=== PATIENT | female | born 1950 | race Caucasian/White ===

== ENCOUNTER 2024-01-06 14:06 | Outpatient (AMB) | payer MEDICARE, MEDICAID, SELFPAY ==
--- NOTE | 2024-01-06 14:26 | A.OFFPC_ITS ---
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 Foreign Student Adviser Required: No Is last menstrual period known: No Post menopausal: No Patient : No Allergies morphine Adverse Reaction (Intermediate, Verified 01/06/24 14:31) Rash Penicillins Adverse Reaction (Intermediate, Verified 01/06/24 14:31) Rash Tobacco use date assessed: 01/06/24 Fall risk assessment: No Falls in past year Last assessed Fall Risk: 01/06/24 Dental Screening Dental Screen Date: 01/06/24 Did you have a dental visit in the last 12 months?: No Did you have a dental problem in the last 6 months where you did not have access to dental care?: No Was dental information given to patient?: Patient has dentist HPI HPI Comments History of Present Illness Details This is a 73-year-old female with a past medical history obtained from very limited medical records from [facility] including 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 The patient is alone today. Patient says there is no family/career development associate I can call that would be able to help with today's visit. She is a very poor historian. Patient says she has been living at [facility] since October this year. The contact [phone]. Patient says that she was hospitalized for an unknown duration a year or 2 ago and that she was in rehab in [place] for about a year after that until she relocated to [facility], but I found a summary from rehab in her chart from 2020. Prior to all this she was living in an apartment. She has 2 daughters, but she says they are not involved in her healthcare. Patient says she is not currently receiving PT or OT. She uses a walker. Notes indicate she had a CVA in 2020. Patient says this is correct. Notes also indicate she had an NSTEMI in 2020 and CHF and stress cardiomyopathy with EF 25- 30%. She does not recall being told that she has any heart problems. Patient does not know if she sees specialists or when she was last seen by specialists. She believes she was diagnosed with HIV about a year ago. Her medication list which is handwritten includes Biktarvy. Some of this medication list is not very legible. [facility] contacted for typed list. She brought a list of blood sugars with her which are quite variable. They range from 82-417. Patient says she is on a sliding scale of short-acting insulin and on 44 units of Lantus. She says the nurses at her rest home check her blood sugar and director how many units of short-acting insulin to administer and she administers it. She endorses neuropathy in her feet. ROS: Constitutional: No unexplained weight loss, fever, chills, +chronic fatigue Eyes: No vision changes Respiratory: No shortness of breath, cough or sputum production. Cardiovascular: No chest pain or palpitations. Gastrointestinal: No anorexia, nausea, vomiting or diarrhea. No abdominal pain\ Neurologic: No headache, dizziness, syncope or seizures Endocrine:No polyuria or polydipsia. Physical exam: Constitutional: Alert, in no distress. Ambulates with walker. Head: Normocephalic. Eyes: Pupils are equal, round and reactive to light. Neck: Supple, Full range of motion. No lymphadenopathy. Respiratory: Clear to auscultation. Cardiovascular: S1 S2 regular. No murmurs. Neurologic: No focal neurological deficits. Extremities: Warm and well perfused. No clubbing, cyanosis or edema. Psychiatric: Cooperative [facility] Medical History (Updated 01/07/24 @ 08:34 by PAWAN Worthington) NSTEMI (non-ST elevated myocardial infarction) CVA (cerebral vascular accident) CKD stage 3b, GFR 30-44 ml/min Generalized muscle weakness Cognitive communication deficit Chronic low back pain with sciatica Vascular dementia Hyperlipidemia History of CHF (congestive heart failure) History of bacteremia Morbid obesity due to excess calories History of pyelonephritis Rheumatic fever without heart involvement Parkinson's disease without dyskinesia Metabolic encephalopathy HIV (human immunodeficiency virus infection) Hypertension Type II diabetes with exterminator use of insulin Diabetes Surgical History (Updated 01/07/24 @ 08:32 by PAWAN Worthington) History of partial hysterectomy Social History Housing: Assisted Living Facility Patient Tobacco Use Status: Current everyday Tobacco user Tobacco use type: Cigarette Cigarette Packs Per Day: 0 Cigarettes Per Day: 4 e-Cigarette/Vaping Use: Never Used Second Hand Smoke Exposure: Yes service: No Current occupational status: retired Current occupational exposures/hazards: No Cognitive needs: No Hearing needs: No Vision needs: No Questionnaire PHQ-9 Over the last 2 weeks, how often have you been bothered by any of the following problems? 1. Little interest or pleasure in doing things: not at all 2. Feeling down, depressed, or hopeless: not at all 3. Trouble falling or staying asleep, or sleeping too much: nearly every day 4. Feeling tired or having little energy: nearly every day 5. Poor appetite or overeating: not at all 6. Feeling bad about yourself - or that you are a failure or have let yourself or your family down: not at all 7. Trouble concentrating on things, such as reading the newspaper or watching television: not at all 8. Moving or speaking so slowly that other people could have noticed. Or the opposite - being so fidgety or restless that you have been moving around a lot more than usual: not at all 9. Thoughts that you would be better off or of hurting yourself in some way: not at all Total score: 6 10398 - PHQ-9 Billing: Yes Source: Developed by Drs. Jasper Leiva, Gisell Townsend, Benjamin Villarreal and colleagues, with an educational luz from [employer]. Thrive Questionnaire Date Thrive assessed: 01/06/24 I am a: Patient What is your living situation today?: I have a steady place to live Within the past 12 months, did the food you bought not last and you didn't have the money to get more?: Never true Within the past 12 months, did you worry whether your food would run out before you got money to buy more?: Never true Do you have trouble paying for medicines?: No Do you have trouble getting transportation to medical appointments?: No Do you have trouble paying your heating and electricity bill?: No Do you have trouble taking care of your child, family member or friend?: No Do you have trouble with day-to-day activities such as bathing, preparing meals, shopping, managing finances, etc.?: No Are you currently unemployed and looking for a job?: No Are you interested in more education?: No Please select the resources that you would like help with: None Currently or been in a relationship where the following occur: No concerns reported THRIVE Score: 0 AUDIT C Alcohol Use Questionnaire (AUDIT-C) 1. How often do you have a drink containing alcohol?: Never Total Score: 0 Score Reviewed/Action Taken: Yes LARISA-7 AMB Questionnaire LARISA-7 Date LARISA - 7 assessed: 01/06/24 Feeling nervous, anxious, or on edge: 0 = Not at all Not being able to stop or control worryin = Not at all Worrying too much about different things: 0 = Not at all Trouble relaxin = Not at all Being so restless that it is hard to sit still: 0 = Not at all Becoming easily annoyed or irritable: 0 = Not at all Feeling afraid as if something awful might happen: 0 = Not at all Total LARISA-7 score (0-4 normal; 5-9 mild; 10-14 moderate; 15-21 severe): 0 Source: Developed by Drs. Jasper Leiva, Gisell Townsend, Benjamin Villarreal and colleagues, with an educational luz from [employer]. LARISA-7 Assessment Billing LARISA-7 Assessment Tool: LARISA-7 Assessment 00517 Physical exam (Primary Care) Vital Signs: Last Vital Signs Temp 97.6 F 01/06/24 14:40 Pulse 76 01/06/24 14:40 Resp 16 01/06/24 14:40 BP 114/58 L 01/06/24 14:40 Pulse Ox 96 01/06/24 14:40 Oxygen Delivery Method Room Air 01/06/24 14:40 BMI result Body Mass Index 29.1 Tobacco/Smoking Status: Tobacco use Status Tobacco use date assessed 01/06/24 01/06/24 14:38 Patient Tobacco Use Status Current everyday Tobacco 01/06/24 14:38 Tobacco use type Cigarette 01/06/24 14:38 e-Cigarette/Vaping Use Never Used 01/06/24 14:38 PHQ-9: PHQ-9 Score PHQ-9: Total score 6 01/07/24 08:19 Thrive Assessment: Date of Thrive Assessment Date Thrive assessed 01/06/24 01/06/24 14:46 Currently or been in a relationship where the following occur: No concerns reported Assessment and Plan Assessment & Plan (1) Type II diabetes with [facility] use of insulin: Code(s): E11.9 - Type 2 diabetes mellitus without complications; Z79.4 - nursing home (current) use of insulin Qualifiers: Diabetes mellitus complication detail: with polyneuropathy Diabetes mellitus complication status: with neurologic complications Qualified Code(s): E11.42 - Type 2 diabetes mellitus with diabetic polyneuropathy; Z79.4 - nursing home (current) use of insulin (2) Hypertension: Code(s): I10 - Essential (primary) hypertension Qualifiers: Hypertension type: primary hypertension Qualified Code(s): I10 - Essential (primary) hypertension (3) HIV (human immunodeficiency virus infection): Code(s): Z21 - Asymptomatic human immunodeficiency virus [HIV] infection status Qualifiers: HIV symptom status: unspecified Qualified Code(s): Z21 - Asymptomatic human immunodeficiency virus [HIV] infection status (4) Parkinson's disease without dyskinesia: Code(s): G20.A1 - Parkinson's disease without dyskinesia, without mention of fluctuations Qualifiers: Fluctuating manifestations: unspecified whether manifestations fluctuate Qualified Code(s): G20.A1 - Parkinson's disease without dyskinesia, without mention of fluctuations (5) History of CHF (congestive heart failure): Code(s): Z86.79 - Personal history of other diseases of the circulatory system (6) Hyperlipidemia: Code(s): E78.5 - Hyperlipidemia, unspecified Qualifiers: Hyperlipidemia type: pure hypercholesterolemia Qualified Code(s): E78.00 - Pure hypercholesterolemia, unspecified (7) CKD stage 3b, GFR 30-44 ml/min: Code(s): N18.32 - Chronic kidney disease, stage 3b Plan In summary this is a 73-year-old female with a seemingly complex past medical history who presents to [facility] care who unfortunately is a poor historian with extremely limited medical records provided today. [facility] will be contacted regarding patient coming alone for appointments and to request further records and the names of any specialists she is seeing so we can request further records. It is difficult to make any adjustments to her regimen today without further information. I will request updated labs. Continue current medications for now. Typed med list requested from [facility] Short-term follow up in 4 weeks. Orders: Orders TSH reflex Free T4 01/06/24 E11.9 - Type 2 diabetes mellitus without complications, E66.9 - Obesity, unspecified, I10 - Essential (primary) hype rtension, Z21 - Asymptomatic human immunodeficiency virus [HIV] infection status, Z79.4 - exterminator (current) use of insulin Hemoglobin A1c 01/06/24 E11.9 - Type 2 diabetes mellitus without complications, I10 - Essential (primary) hypertension, Z21 - Asymptomatic human immunodeficiency virus [HIV] infection status, Z79.4 - exterminator (current) use of insulin Lipid Panel 01/06/24 E11.9 - Type 2 diabetes mellitus without complications, I10 - Essential (primary) hypertension, Z21 - Asymptomatic human immunodeficiency virus [HIV] infection status, Z79.4 - nursing home (current) use of insulin Comprehensive Met. Panel 01/06/24 E11.9 - Type 2 diabetes mellitus without complications, I10 - Essential (primary) hypertension, Z21 - Asymptomatic human immunodeficiency virus [HIV] infection status, Z79.4 - exterminator (current) use of insulin Microalbumin, Random (w Creat) 01/06/24 E11.9 - Type 2 diabetes mellitus without complications, I10 - Essential (primary) hypertension, Z21 - Asymptomatic human immunodeficiency virus [HIV] infection status, Z79.4 - nursing home (current) use of insulin Complete Blood Count no Diff 01/06/24 E11.9 - Type 2 diabetes mellitus without complications, I10 - Essential (primary) hypertension, Z21 - Asymptomatic human immunodeficiency virus [HIV] infection status, Z79.4 - exterminator (current) use of insulin Coding Level of Care Code New Pt Level 5 (20500) Complex EM visit Add On G2211 Diagnoses Type 2 diabetes mellitus with diabetic polyneuropathy, with long-term current use of insulin E11.42; Z79.4 Diabetes mellitus complication detail: with polyneuropathy Diabetes mellitus complication status: with neurologic complications Primary hypertension I10 Hypertension type: primary hypertension HIV infection, unspecified symptom status Z21 HIV symptom status: unspecified Parkinson's disease without dyskinesia, unspecified whether manifestations fluctuate G20.A1 Fluctuating manifestations: unspecified whether manifestations fluctuate History of CHF (congestive heart failure) Z86.79 Pure hypercholesterolemia E78.00 Hyperlipidemia type: pure hypercholesterolemia CKD stage 3b, GFR 30-44 ml/min N18.32 Additional Codes LARISA-7 Assessment Billing - LARISA-7 Assessment Tool: LARISA-7 Assessment [id number] ([id number]) Time Spent (min) 62 Comment Seeing the patient, reviewing available records, updating her chart and documentation
[2024-01-06 14:40] VITALS: BP 114/58; PULSE 76; RESP 16; TEMP 36.4; O2SAT 96; BMI 29.1
== END 2024-01-06 15:33 | disposition home or self-care (01) ==
PROVIDERS: PCP Physician Assistant Medical; Visit Provider Physician Assistant Medical
DX: E11.42 Type 2 diabetes mellitus with diabetic polyneuropathy (principal); Z79.4 Long term (current) use of insulin; Z21 Asymptomatic human immunodeficiency virus [HIV] infection status; G20.A1 Parkinson's disease without dyskinesia, without mention of fluctuations; N18.32 Chronic kidney disease, stage 3b; I10 Essential (primary) hypertension; Z86.79 Personal history of other diseases of the circulatory system; E78.00 Pure hypercholesterolemia, unspecified
CPT/HCPCS: 99205; G2211

== ENCOUNTER 2024-03-13 15:56 | Outpatient (AMB) | payer MEDICARE, MEDICAID, SELFPAY ==
--- NOTE | 2024-03-13 16:13 | MHC.PC.OV ---
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 Supervisor Required: No Allergies morphine Adverse Reaction (Intermediate, Verified 03/13/24 16:14) Rash Penicillins Adverse Reaction (Intermediate, Verified 03/13/24 16:14) Rash Tobacco use date assessed: 01/06/24 Fall risk assessment: 1 Fall in past year Last assessed Fall Risk: 03/13/24 Dental Screening Dental Screen Date: 01/06/24 HPI HPI Comments History of Present Illness Details This is a 73-year-old female with a past medical history of 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 The patient is alone today. Patient says there is no family/intensive care unit nurse I can call that would be able to help with today's visit. She is a poor historian. The patient was admitted to [facility] on 02/05/2024 to 02/07/2024 for hypotension, THAO, COVID-19 and sepsis. She presented to the ED with lightheadedness and nausea. She was stable on room air and did not require dexamethasone/remdesivir. There was concern for sepsis due to low blood pressure initially, urinalysis was positive for acute infection and urine culture came back positive, she received antibiotics in the hospital. THAO resolved. Echo was ordered by the admitting provider but was deferred to outpatient. She had an echocardiogram 11/06/2022 with LVEF 55-60%, mild tricuspid regurgitation and mild pulmonary hypertension. She also tripped and fell at [facility] after this and lacerated her upper lip. Patient says absorbable stitches were placed at [facility], and her lip healed. Patient resides at [facility] since October 2023. The contact [phone]. She has 2 daughters, but she says they are not involved in her healthcare. Patient says she is not currently receiving PT or OT. She uses a walker, and she would like an evaluation to see if she can get rid of the walker and use a cane. Notes indicate she had a CVA in 2019. Patient says this is correct. Notes also indicate she had an NSTEMI in 2019 and CHF and stress cardiomyopathy with EF 25-30%. She denies chest pain, shortness of breath and leg swelling. She has HIV treated with Biktarvy. She was diagnosed in 2017 and seen by [facility] Infectious Disease 04/12/2023. Type 2 diabetes is treated with 44 units of Lantus daily and short-acting insulin sliding scale though she does not know the sliding scale. She says nurses check her blood sugar and administer all of her medication. She has neuropathy in her feet. She is also on metformin 500 mg twice daily. Her hemoglobin A1c is 10.5% today. I placed multiple referrals to specialists for her after her last visit. They were not processed. Patient says she feels well today and has no concerns. Reviewed labs from hospitalization in January: Creatinine 0.95 GFR 64 ALT 18, AST 26 POC 116 INR 0.9 TSH 0.45 WBC 11.5 Hemoglobin 11.5 Hematocrit 35 Platelet count 126751 On MRI from 11/09/2022 at [facility] she had a 3.8 cm focal area in the liver that was similar to prior exams and malignancy less likely however MRI with contrast in 3 months was recommended. ROS: Constitutional: No unexplained weight loss, fever, chills, +chronic fatigue Eyes: No vision changes Respiratory: No shortness of breath, cough or sputum production. Cardiovascular: No chest pain or palpitations. : No dysuria, hematuria or urinary frequency Gastrointestinal: No anorexia, nausea, vomiting or diarrhea. No abdominal pain or flank pain Neurologic: No headache, dizziness, syncope or seizures Endocrine:No polyuria or polydipsia. Physical exam: Constitutional: Alert, in no distress. Ambulates with walker. Head: Normocephalic. Mouth: Small healed scar on left upper lip Eyes: Pupils are equal, round and reactive to light. Neck: Supple, Full range of motion. No lymphadenopathy. Respiratory: Clear to auscultation. Cardiovascular: S1 S2 regular. No murmurs. Abdomen: Soft, nontender, no palpable masses, no rebound or guarding Neurologic: No focal neurological deficits. Extremities: Warm and well perfused. No clubbing, cyanosis or edema. Psychiatric: Cooperative [facility] Medical History (Updated 01/13/24 @ 16:09 by PAWAN Worthington) Bilateral adrenal adenomas Liver lesion Bilateral carotid artery stenosis Genital herpes MSSA bacteremia Stenosis of right vertebral artery History of parotitis NSTEMI (non-ST elevated myocardial infarction) CVA (cerebral vascular accident) CKD stage 3b, GFR 30-44 ml/min Generalized muscle weakness Cognitive communication deficit Chronic low back pain with sciatica Vascular dementia Hyperlipidemia History of CHF (congestive heart failure) History of bacteremia Morbid obesity due to excess calories History of pyelonephritis Rheumatic fever without heart involvement Parkinson's disease without dyskinesia Metabolic encephalopathy HIV (human immunodeficiency virus infection) Hypertension 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 Surgical History (Updated 01/07/24 @ 08:32 by PAWAN Worthington) History of partial hysterectomy Social History Housing: Assisted Living Facility Patient Tobacco Use Status: Current everyday Tobacco user Tobacco use type: Cigarette Cigarette Packs Per Day: 0 Cigarettes Per Day: 4 e-Cigarette/Vaping Use: Never Used Second Hand Smoke Exposure: Yes service: No Current occupational status: retired Current occupational exposures/hazards: No Cognitive needs: No Hearing needs: No Vision needs: No Questionnaire PHQ-9 Over the last 2 weeks, how often have you been bothered by any of the following problems? 1. Little interest or pleasure in doing things: nearly every day 2. Feeling down, depressed, or hopeless: nearly every day 3. Trouble falling or staying asleep, or sleeping too much: not at all 4. Feeling tired or having little energy: several days 5. Poor appetite or overeating: not at all 6. Feeling bad about yourself - or that you are a failure or have let yourself or your family down: not at all 7. Trouble concentrating on things, such as reading the newspaper or watching television: not at all 8. Moving or speaking so slowly that other people could have noticed. Or the opposite - being so fidgety or restless that you have been moving around a lot more than usual: nearly every day 9. Thoughts that you would be better off or of hurting yourself in some way: not at all Total score: 10 Depression Screening Interpretation: Positive Depression Screening Done: Yes [id number] - PHQ-9 Billing: Yes Source: Developed by Drs. Jasper Leiva, Gisell Townsend, Benjamin Villarreal and colleagues, with an educational luz from [email or web address]. Thrive Questionnaire Date Thrive assessed: 03/13/24 I am a: Patient What is your living situation today?: I choose not to answer this question Within the past 12 months, did the food you bought not last and you didn't have the money to get more?: Often true Within the past 12 months, did you worry whether your food would run out before you got money to buy more?: Often true Do you have trouble paying for medicines?: No Do you have trouble getting transportation to medical appointments?: No Do you have trouble paying your heating and electricity bill?: No Do you have trouble taking care of your child, family member or friend?: No Do you have trouble with day-to-day activities such as bathing, preparing meals, shopping, managing finances, etc.?: No Are you currently unemployed and looking for a job?: No Are you interested in more education?: No Please select the resources that you would like help with: Food and Care for elder or disabled Currently or been in a relationship where the following occur: No concerns reported THRIVE Score: 2 AUDIT C Alcohol Use Questionnaire (AUDIT-C) 1. How often do you have a drink containing alcohol?: Never Total Score: 0 LARISA-7 AMB Questionnaire LARISA-7 Date LARISA - 7 assessed: 03/13/24 Feeling nervous, anxious, or on edge: 3 = Nearly every day Not being able to stop or control worryin = Not at all Worrying too much about different things: 2 = More than half the days Trouble relaxin = Nearly every day Being so restless that it is hard to sit still: 1 = Several days Becoming easily annoyed or irritable: 2 = More than half the days Feeling afraid as if something awful might happen: 0 = Not at all Total LARISA-7 score (0-4 normal; 5-9 mild; 10-14 moderate; 15-21 severe): 11 Source: Developed by Drs. Jasper Leiva, Gisell Townsend, Benjamin Villarreal and colleagues, with an educational luz from [email or web address]. LARISA-7 Assessment Billing LARISA-7 Assessment Tool: LARISA-7 Assessment 58028 Physical exam (Primary Care) Vital Signs: Last Vital Signs Pulse 80 03/13/24 16:22 Resp 14 03/13/24 16:22 BP 110/64 03/13/24 16:22 Pulse Ox 98 03/13/24 16:22 Oxygen Delivery Method Room Air 03/13/24 16:22 BMI result Body Mass Index 27.4 Tobacco/Smoking Status: Tobacco use Status Tobacco use date assessed 01/06/24 03/13/24 16:17 Patient Tobacco Use Status Current everyday Tobacco 03/13/24 16:17 Tobacco use type Cigarette 03/13/24 16:17 e-Cigarette/Vaping Use Never Used 03/13/24 16:17 PHQ-9: PHQ-9 Score PHQ-9: Total score 10 03/13/24 16:25 Depression Screening Interpretation: Positive Thrive Assessment: Date of Thrive Assessment Date Thrive assessed 03/13/24 03/13/24 16:23 Currently or been in a relationship where the following occur: No concerns reported Results AMB Hemoglobin A1c AMB Hemoglobin A1c 10.5 % Last Edit by Kamilla Pritchett CMA on 03/13/24 16:28 Coding Level of Care Code Est Pt Level 5 (61061) Complex EM visit Add On G2211 Diagnoses Hospital discharge follow-up Z09 Type 2 diabetes mellitus with diabetic polyneuropathy, with long-term current use of insulin E11.42; Z79.4 Diabetes mellitus complication status: with neurologic complications Diabetes mellitus complication detail: with polyneuropathy Primary hypertension I10 Hypertension type: primary hypertension HIV infection, unspecified symptom status Z21 HIV symptom status: unspecified Vascular dementia F01.50 CKD stage 3b, GFR 30-44 ml/min N18.32 NSTEMI (non-ST elevated myocardial infarction) I21.4 Parkinson's disease without dyskinesia, unspecified whether manifestations fluctuate G20.A1 Fluctuating manifestations: unspecified whether manifestations fluctuate Liver lesion K76.9 Additional Codes LARISA-7 Assessment Billing - LARISA-7 Assessment Tool: LARISA-7 Assessment 74284 ([id number]) Time Spent (min) 50 Comment Reviewing records, direct patient care, completing documentation Assessment & Plan Assessment & Plan (1) Hospital discharge follow-up: Code(s): Z09 - Encounter for follow-up examination after completed treatment for conditions other than malignant neoplasm Plan: s/p hospitalization for UTI, sepsis and COVID-19. Appears at baseline today. THAO resolved. 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 We will need to contact [facility] for details on her sliding scale and to see if they have a list of her blood sugars. Hemoglobin A1c is above goal. I referred her again to endocrinology at [facility]. Her recent renal function tests are normal. We will increase metformin to 1500 mg extended release in the morning to replace metformin 500 mg twice daily. Side effects reviewed with the patient. I will bring her back in 1 month and notify [place] she needs to be accompanied to the visit are bring the glucometer or list of blood sugars. A CGM would be beneficial, but it is not a manageable option in her current living situation. (3) Hypertension: Code(s): I10 - Essential (primary) hypertension Category: Medical Qualifiers: Hypertension type: primary hypertension Qualified Code(s): I10 - Essential (primary) hypertension Plan: Controlled. Continue current regimen. (4) HIV (human immunodeficiency virus infection): Comment: diagnosed 2018, followed by [facility] ID Code(s): Z21 - Asymptomatic human immunodeficiency virus [HIV] infection status Category: Medical Qualifiers: HIV symptom status: unspecified Qualified Code(s): Z21 - Asymptomatic human immunodeficiency virus [HIV] infection status Plan: Patient is treated with Biktarvy. Referred again to [facility] Infectious Disease. (5) Vascular dementia: Code(s): F01.50 - Vascular dementia, unspecified severity, without behavioral disturbance, psychotic disturbance, mood disturbance, and anxiety Category: Medical Plan: New referral placed to [facility] Neurology. (6) CKD stage 3b, GFR 30-44 ml/min: Code(s): N18.32 - Chronic kidney disease, stage 3b Category: Medical Plan: Monitor. Recent renal function tests while hospitalized normal. Recheck in a month after adjusting dose of metformin. (7) NSTEMI (non-ST elevated myocardial infarction): Comment: 2019 Code(s): I21.4 - Non-ST elevation (NSTEMI) myocardial infarction Category: Medical Plan: Continue baby aspirin, Zetia, rosuvastatin. Check lipid profile. Refer to Cardiology again. Echo ordered. (8) Parkinson's disease without dyskinesia: Code(s): G20.A1 - Parkinson's disease without dyskinesia, without mention of fluctuations Category: Medical Qualifiers: Fluctuating manifestations: unspecified whether manifestations fluctuate Qualified Code(s): G20.A1 - Parkinson's disease without dyskinesia, without mention of fluctuations Plan: Refer to [facility] Neurology. Unsteady gait and uses walker. At risk for falls. Ordered [facility] for PT/OT evaluation. (9) Liver lesion: Code(s): K76.9 - Liver disease, unspecified Category: Medical Plan: MRI with and without contrast ordered for further evaluation. Plan Follow up in 1 month. Orders: Orders CA echo transthoracic complete Today I21.4 - Non-ST elevation (NSTEMI) myocardial infarction AMB Hemoglobin A1c Today E11.42 - Type 2 diabetes mellitus with diabetic polyneuropathy, Z79.4 - [facility] (current) use of insulin MR abdomen wo/w con Today K76.9 - Liver disease, unspecified [facility]errals [facility] Referral F01.50 - Vascular dementia, unspecified severity, without behavioral disturbance, psychotic disturbance, mood disturbance, and anxiety, G20.A1 - Parkinson's disease without dyskinesia, without mention of fluctuations, I63.9 - Cerebral infarction, unspecified, Z91.81 - History of falling Medications: New metformin ER Replaces Metformin 500 mg twice daily. 1,500 mg (3 x 500 mg) PO DAILY 90 days 270 tabs 0RF
[2024-03-13 16:22] VITALS: BP 110/64; PULSE 80; RESP 14; O2SAT 98; BMI 27.4
== END 2024-03-13 16:52 | disposition home or self-care (01) ==
PROVIDERS: PCP Physician Assistant Medical; Visit Provider Physician Assistant Medical
DX: I12.9 Hypertensive chronic kidney disease with stage 1 through stage 4 chronic kidney disease, or unspecified chronic kidney disease (principal); E11.42 Type 2 diabetes mellitus with diabetic polyneuropathy; Z79.4 Long term (current) use of insulin; Z21 Asymptomatic human immunodeficiency virus [HIV] infection status; F01.50 Vascular dementia, unspecified severity, without behavioral disturbance, psychotic disturbance, mood disturbance, and anxiety; N18.32 Chronic kidney disease, stage 3b; I21.4 Non-ST elevation (NSTEMI) myocardial infarction; G20.A1 Parkinson's disease without dyskinesia, without mention of fluctuations; Z09 Encounter for follow-up examination after completed treatment for conditions other than malignant neoplasm; K76.9 Liver disease, unspecified

== ENCOUNTER → 2024-03-13 15:56 | Outpatient (BNVA) | payer MEDICARE, MEDICAID, SELFPAY | PROVIDERS: PCP Physician Assistant Medical; Visit Provider Physician Assistant Medical | DX: Z09 Encounter for follow-up examination after completed treatment for conditions other than malignant neoplasm (principal); E11.42 Type 2 diabetes mellitus with diabetic polyneuropathy; I13.0 Hypertensive heart and chronic kidney disease with heart failure and stage 1 through stage 4 chronic kidney disease, or unspecified chronic kidney disease; I50.9 Heart failure, unspecified; E11.22 Type 2 diabetes mellitus with diabetic chronic kidney disease; N18.32 Chronic kidney disease, stage 3b; F01.50 Vascular dementia, unspecified severity, without behavioral disturbance, psychotic disturbance, mood disturbance, and anxiety; G20.A1 Parkinson's disease without dyskinesia, without mention of fluctuations; K76.9 Liver disease, unspecified; Z21 Asymptomatic human immunodeficiency virus [HIV] infection status; I25.2 Old myocardial infarction; Z86.73 Personal history of transient ischemic attack (TIA), and cerebral infarction without residual deficits; Z79.4 Long term (current) use of insulin; Z91.81 History of falling | CPT/HCPCS: 83036; 96127; 99212 ==

== ENCOUNTER → 2024-04-28 13:05 | Outpatient (REF) | payer MEDICARE, MEDICAID, SELFPAY ==
--- NOTE | 2024-04-28 13:13 | CA_ITS ---
Transthoracic Echocardiogram Patient (Last, First, Middle): Radha Bay, Gender: Female Date of : 1950 Age: 73 Procedure Date: 04/28/2024 Procedure Type: Transthoracic Echocardiogram Location: OP Height: 160.02 cm Weight: 71.22 kg BSA: 1.74 m2 Heart Rate: 70 bpm BP: 105 / 60 mmHg Fruit I Farmworker: ZURI Referring MD: Radha VILLALTA Symptoms: I21.4 - Non-ST elevation (NSTEMI) myocardial infarction Study Quality: Adequate ECG Rhythm: Sinus Conclusions: - Normal left ventricular size, thickness, systolic function, and wall motion. The visually estimated ejection fraction is between 60-65%. - E/E prime ratio is between 8 and 15 consistent with indeterminate filling pressures. - Normal right ventricular cavity size and systolic function. Findings Left Ventricle Normal left ventricular size, thickness, systolic function, and wall motion. The visually estimated ejection fraction is between 60-65%. Abnormal diastolic function is noted. Spectral Doppler is indicative of an impaired relaxation filling pattern. E/E prime ratio is between 8 and 15 consistent with indeterminate filling pressures. Right Ventricle Normal right ventricular cavity size and systolic function. Atria The left atrium is normal in size. Aortic Valve Normal aortic valve structure and function. There is no aortic valve stenosis. There is no aortic valve regurgitation. Mitral Valve Normal mitral valve structure and function. There is mild mitral annular calcification. There is no mitral valve regurgitation. There is no mitral valve stenosis. Pulmonic Valve The pulmonic valve is likely normal. Tricuspid Valve Normal tricuspid valve structure. Normal right atrial pressure. There is no evidence of pulmonary hypertension. Great Vessels All visible segments of the aorta are normal in size. The visualized portions of the pulmonary artery and branches are normal. Venous The inferior vena cava is normal in size and collapses greater than 50% with inspiration. Pericardium/Pleural There is no evidence of pericardial effusion. Prior Study Comparison No prior study available for comparison. Measurements 2D Linear Measurements IVSd: 0.86 0.6-0.9/0.6-1.0 cm LVIDd: 3.86 3.9-5.3/4.2-5.9 cm LVIDd Index: 2.22 2.4-3.2/2.2-3.1 cm/m2 LVIDs: 2.08 2.0-3.6 cm LVPWd: 0.80 0.7-1.1 cm LA Diam: 2.90 2.7-3.8/3.0-4.0 cm LAIDs Index: 1.67 1.5-2.3 cm/m2 LV Mass: 114.64 67-162/88-224 g LV Mass Index: 65.88 43-95/49-115 g/m2 LVOT Diam: 1.90 3.0+(-)1.3 cm 2D Systolic Function EF 4C: 52.30 >55% EF 2C: 73.00 >55% EF BiP: 64.90 >55% Mitral Valve MV Pk E: 0.85 MV PK A: 0.94 MV Decel Time: 322.00 E/A: 0.90 E'Lateral: 6.85 E'Medial: 6.20 E/E' Med: 13.80 E/E' Lat: 12.50 PHT: 94.00 MVA PHT: 2.34 Decel Beaver: 2.65 Aortic Valve AoV Pk Matheus: 1.54 AoV Mn Matheus: 1.09 AoV VTI: 0.32 AoV Pk Grad: 9.00 Aov Mn Grad: 5.00 IAN Cont.VTI: 2.46 LVOT LVOT Pk Matheus: 1.26 LVOT Mn Matheus: 0.87 LVOT VTI: 0.28 LVOT Pk Grad: 6.00 LVOT Mn Grad: 3.00 LVOT Diam: 1.90 LVOT Area: 2.84 Diastolic Function MV Pk E: 0.85 MV Pk A: 0.94 E/A: 0.90 E'Medial: 6.20 E/E' Med: 13.80 E' Laterial: 6.85 E/E' Lat: 12.50 Right Ventricle TAPSE (mm): 15.10 TVS' Matheus: 11.10 Tricuspid Valve TR Pk Matheus: 2.23 TR Pk Grad: 20.00 RA Press: 3.00 RVSP: 23.00 Great Vessels Aorta Sinus of Valsalva: 3.20 2.0-3.5 cm Ao Asc: 3.10 2.1-3.4 cm Ao Arch: 2.40 Pulmonary Valve PV Pk Matheus: 0.80 Peak PV Grad: 3.00 Updated in Other Vendor System with Status of Final Neno Tay MD electronically signed on 04/30/2024 5:04:07 PM with status of Final
--- OUTSIDE RECORDS SUMMARY | 2024-05-03 09:27 | XMS_ITS | Continuity of Care Document ---
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 Name Role Phone Jt Richmond MD Unavailable Unavailable Allergies, Adverse Reactions, Alerts Substance Reaction Status Criticality Penicillins Active No Information morphine HivesHives Active No Information codeine Agitation Active No Information Medications Medication Instructions Dosage Effective Dates (start - stop) Status Comments Mylanta ORAL LIQUID 10 mL four times daily as needed for dyspepsia - Active Al Hydroxide/Mg Hydroxide/Simet hicone (aluminum hydroxide/magne sium hydroxide/simet hicone 200 mg-200 mg-20 mg/5 mL oral suspension) aspirin 81 mg ORAL TABLET take 81 milligram by oral route daily - Active carvedilol 6.25 mg tablet take 1 tablet by oral route 2 times every day with food 6.25 MG - Active clopidogrel 75 mg tablet take 1 tablet by oral route every day 75 MG - Active lisinopril 10 mg tablet take 1 tablet by oral route every day 10 MG - Active loratadine 10 mg tablet take 1 tablet by oral route every day 10 MG - Active metformin 500 mg tablet take 1 tablet by oral route 2 times every day with morning and evening meals 500 MG - Active pregabalin 75 mg capsule take 1 capsule by oral route 2 times every day 75 MG - Active rosuvastatin 40 mg tablet take 1 tablet by oral route every day 40 MG - Active Advance Directives Directive Yes / No Effective Date File Name No Information Encounters Encounter Description Practice Location Reason(s) For Visit Diagnoses Date Provider Providers Copied on Encounter On license of [facility], [address], [id number], tel:[phone] [facility] No Information 1 Basilio Waters. [address] [place], [place], [id number], [place]. tel:[phone] On license of [facility], [address] [address], [place], [place], [id number], [place] tel:[phone] [place] No Information 1 Eitan Gil. [address] [place] [address], [id number], . tel:[phone] On license of [facility], [address], [id number], tel:[phone] [facility] intake (chief complaint) No Information 1 Jonathan Maday. [address] [place], [place], [id number], [place]. tel:[phone] Family History Family Member Type Diagnosis Age At Onset No Information Payers Payer name Insurance type Covered alliance party ID Authoriza tion(s) No Information Social History Type Description Quantity Date Captured Comments Sex Female Smoking Status No Information Chief Complaint And Reason For Visit No Information Reason For Referral Reason For Referral No Information History Of Present Illness Encounter Date Complaint History Of Prese nt Illness intake PPT here for int nehemiah with her daughter Blank Carney. She has two other daughters Gail, and Karen (Adopted). All of her children are some what estranged and were raised by their father. She describes their relationship as present but not close , they want to help her but no been able to have a relationship. Blank has recently been working with Gail as her healthcare proxy and caregiver. These have not been signed or invoked by a physician at this time. Mrs. Bay is originally from near [place], [place] and is currently living at [facility]. She reportedly moved in April 2020. Social history includes several marriages (four), but has been for a long time. She was living with one daughter in a [facility], as well as a brother in [place] at some point. Both were unable to manage her at home due to psychiatric behaviors such as hoarding, poor hygiene, and worsening dementia. She worked in [employer], mostly at night. LARRY demonstrated moderate to severe cognitive impairment during interview. She had difficulty following conversation and compensated by confabulation. She is alert to self; disoriented to day/week/time/location. There is a family history of dementia. She has a personal history of 2 minor strokes, 1st resulting in speech impairment and the other with instant mental decline. She does eat her meals in her room. ADLs require stand by assist. Her daughter is currently managing her medications, she brings them to the facility nurse to distribute. LARRY does have a long history of depression and poor hygiene. She will often not shower, brush her teeth/hair. Her room is very dirty (per daughter). Daughter says she was once diagnosed with very low serotonin". Cane for ambulation she uses sometimes. C/O foot pain, has questionable neuropathy, not confirmed with EMG/NCV. Dentail: partials upper. Wears glasses. Has hearing aides. LARRY has had two [facility] admissions in the past year. January for stroke and April for nausea/vomiting/acute gastritis. Fall April 2020, no injury. She did hit her head. Questionable incontinence. Nurse checks her FSBS daily. She was a PPD smoker from [id number]. Rarely drank ETOH, no drug use.Unable to obtain family history, except dementia and no history of cancer. She has seen a service station helper at some point, no follow up. Plan: accepted for enrollment. PPT is more appropriate for a memory unit, would recommend this in the near future. daughter to obtain healthcare proxy activation from current PCP for medical decision making. Functional Status Date Functional Assessmen t No Information Instructions Date Instruction Additional Infor mation No Information Assessments Type Assessment Date No Information Patient Care Teams Name Effective Dates (start - stop) Status Members No Information
== END ==
LOC: HO.CARD 13:05
PROVIDERS: PCP Physician Assistant Medical; Visit Provider Physician Assistant Medical
DX: I21.4 Non-ST elevation (NSTEMI) myocardial infarction (principal)
CPT/HCPCS: 93306

== ENCOUNTER → 2024-04-28 13:13 | Outpatient (BNV) | payer MEDICARE, MEDICAID, SELFPAY | PROVIDERS: PCP Physician Assistant Medical; Visit Provider Internal Medicine Cardiovascular Disease | DX: I21.4 Non-ST elevation (NSTEMI) myocardial infarction (principal); I34.81 Nonrheumatic mitral (valve) annulus calcification | CPT/HCPCS: 93306 ==

== ENCOUNTER 2024-05-10 11:18 | Outpatient (REF) | payer MEDICARE, MEDICAID, SELFPAY ==
--- OUTSIDE RECORDS SUMMARY | 2024-05-10 11:21 | XMS_ITS | Continuity of Care Document ---
Author Organization [facility] Address [address] [address] Phone Care Team Providers Care Carpet Weaver Name Role Phone Jt Richmond MD Unavailable [...] Diagnoses Date Provider Providers Copied on Encounter [facility], [address], [id number], tel:[phone] [facility] No Information 1 Basilio Waters. [address] [place], [place], [id number], [place]. tel:[phone] [facility], [address] [address], [place], [place], [id number], [place] tel:[phone] [place] No Information 1 Eitan Gil. [address] [place] [address], [id number], . tel:[phone] [facility], [address], [id number], tel:[phone] [facility] intake (chief complaint) No Information 1 Jonathan Maday. [address] [place], [place], [id number], [place]. tel:[phone] Family History Family Member Type Diagnosis Age At Onset No Information Payers Payer name Insurance type Covered constitution party ID Authoriza tion(s) No Information Social [...] time. Mrs. Bay is originally from near [place], [place] and is currently living at [facility]. She reportedly moved in April 2020. Social history includes several marriages (four), but has been for a long time. She [facility], as well as a brother in [place] at some point. Both were unable to manage her at home due to psychiatric behaviors such as hoarding, poor hygiene, and worsening dementia. She worked in [employer], mostly at night. LARRY demonstrated moderate to [...] Has hearing aides. LARRY has had two [facility] admissions in the past year. January for stroke and April for nausea/vomiting/acute gastritis. Fall April 2020, no injury. She did hit her head. Questionable incontinence. Nurse checks her FSBS daily. She was a PPD smoker from [phone]. Rarely drank ETOH, no drug use.Unable to obtain family history, except dementia and no history of cancer. She has seen a dinkey operator slag at some point, no follow up. Plan: [...]
== END 2024-05-10 11:19 | disposition home or self-care (01) ==
LOC: HO.MRI 11:18
PROVIDERS: PCP Physician Assistant Medical; Visit Provider Physician Assistant Medical
DX: K76.9 Liver disease, unspecified (principal)
CPT/HCPCS: 74181

== ENCOUNTER 2024-07-03 14:06 | Outpatient (AMB) | payer MEDICARE, MEDICAID, SELFPAY ==
--- NOTE | 2024-07-03 14:12 | MHC.PC.OV ---
Vital Signs 07/03/24 14:13 Height 5 ft 3 in Weight 140 lb 6 oz BMI 24.9 BP 118/72 Blood Pressure Location Rt brachial Position Sitting Pulse 80 Pulse Source Pulse Oximeter Pulse Oximetry (%) 97 Oxygen Delivery Method Room Air Intake Visit Reasons: Review MRI, discuss diabetes Allergies morphine Adverse Reaction (Intermediate, Verified 07/03/24 14:16) Rash Penicillins Adverse Reaction (Intermediate, Verified 07/03/24 14:16) Rash Tobacco use date assessed: 07/03/24 Fall risk assessment: No Falls in past year Last assessed Fall Risk: 07/03/24 Dental Screening Dental Screen Date: 07/03/24 Did you have a dental visit in the last 12 months?: No Did you have a dental problem in the last 6 months where you did not have access to dental care?: No Was dental information given to patient?: Patient has dentist HPI HPI Comments History of Present Illness Details This is a 73-year-old female with a past medical history of 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 She is a poor historian. She is here today with June, a FUNERAL PRE ARRANGEMENT SPECIALIST from [facility]. No interval ER visits or hospitalizations. They did not bring a glucose log or medication list to the appointment. June reports the log is kept in the med room at [facility]. We contacted her pharmacy to verify her medications. Patient resides at [facility] since October 2023. The contact [phone]. She has 2 daughters, but they are not involved in her healthcare. Patient says she is not currently receiving PT or OT. She uses a walker. She has chronic low back pain that does not radiate down her legs. Denies history of back surgery. Denies numbness or tingling in her legs. She has chronic urinary incontinence which she says is unrelated. No stool incontinence. Tramadol was on her medication list, but it has never been prescribed by this office. Notes indicate she had a CVA in 2019. Patient says this is correct. Notes also indicate she had an NSTEMI in 2019 and CHF and stress cardiomyopathy with EF 25-30%. She denies chest pain, shortness of breath and leg swelling. The patient had an echocardiogram done on 04/28/2024 which showed normal left ventricular ejection fraction of 60-65%, impaired diastolic function and no clinically significant valve disease. She has HIV treated with Biktarvy. She was diagnosed in 2018 and seen by [facility] 04/12/2023. I referred her to Infectious Disease, but they do not know if she went to the appointment. Type 2 diabetes is treated with 44 units of Lantus daily and short-acting insulin sliding scale though she does not know the sliding scale. She is on metformin extended release 1500 mg daily. Hemoglobin A1c is 11% today. They deny hypoglycemic episodes. I placed multiple referrals to specialists for her after her last visit. It is unclear if she attended any of these appointments or the appointments were set up. On MRI from 11/09/2022 at [facility] she had a 3.8 cm focal area in the liver that was similar to prior exams and malignancy less likely however MRI with contrast in 3 months was recommended. I ordered the MRI with contrast. She went to the appointment, and I received the result, but on the report it said she refused the contrast. The patient says this is not true, but in any case the exam was done without contrast which did not sufficiently evaluate the finding. No abnormal finding in the liver was mentioned on this study she had recently. She missed 5 points on MMSE today. ROS: Constitutional: No unexplained weight loss, fever, chills, fatigue Eyes: No vision changes Respiratory: No shortness of breath, cough or sputum production. Cardiovascular: No chest pain or palpitations. : No dysuria, hematuria or urinary frequency Gastrointestinal: No anorexia, nausea, vomiting or diarrhea. No abdominal pain or flank pain Neurologic: No headache, dizziness, syncope or seizures Endocrine:No polyuria or polydipsia. Physical exam: Constitutional: Alert, in no distress. Ambulates with walker. Head: Normocephalic. Eyes: Pupils are equal, round and reactive to light. Neck: Supple, Full range of motion. No lymphadenopathy. Respiratory: Clear to auscultation. Cardiovascular: S1 S2 regular. No murmurs. Abdomen: Soft, nontender, no palpable masses, no rebound or guarding Neurologic: No focal neurological deficits. Symmetric patellar reflexes. No footdrop. Back: No midline spinal tenderness. Tender bilateral lumbosacral musculature. Pain with flexion and extension. Extremities: Warm and well perfused. No clubbing, cyanosis or edema. Psychiatric: Cooperative [facility] Medical History Bilateral adrenal adenomas Liver lesion Bilateral carotid artery stenosis Genital herpes MSSA bacteremia Stenosis of right vertebral artery History of parotitis NSTEMI (non-ST elevated myocardial infarction) CVA (cerebral vascular accident) CKD stage 3b, GFR 30-44 ml/min Generalized muscle weakness Cognitive communication deficit Chronic low back pain with sciatica Vascular dementia Hyperlipidemia History of CHF (congestive heart failure) History of bacteremia Morbid obesity due to excess calories History of pyelonephritis Rheumatic fever without heart involvement Parkinson's disease without dyskinesia Metabolic encephalopathy HIV (human immunodeficiency virus infection) Hypertension Type II diabetes with intermission coordinator use of insulin Diabetes Surgical History History of partial hysterectomy Social History Housing: Assisted Living Facility Patient Tobacco Use Status: Current everyday Tobacco user Tobacco use type: Cigarette Cigarette Packs Per Day: 0 Cigarettes Per Day: 4 e-Cigarette/Vaping Use: Never Used Second Hand Smoke Exposure: Yes service: No Current occupational status: retired Current occupational exposures/hazards: No Cognitive needs: No Hearing needs: No Vision needs: No Questionnaire PHQ-9 Over the last 2 weeks, how often have you been bothered by any of the following problems? 1. Little interest or pleasure in doing things: not at all 2. Feeling down, depressed, or hopeless: not at all 3. Trouble falling or staying asleep, or sleeping too much: not at all 4. Feeling tired or having little energy: not at all 5. Poor appetite or overeating: not at all 6. Feeling bad about yourself - or that you are a failure or have let yourself or your family down: not at all 7. Trouble concentrating on things, such as reading the newspaper or watching television: not at all 8. Moving or speaking so slowly that other people could have noticed. Or the opposite - being so fidgety or restless that you have been moving around a lot more than usual: not at all 9. Thoughts that you would be better off or of hurting yourself in some way: not at all Total score: 0 Depression Screening Interpretation: Negative Depression Screening Done: Yes 06674 - PHQ-9 Billing: Yes Source: Developed by Drs. Jasper Leiva, Gisell Townsend, Benjamin Villarreal and colleagues, with an educational luz from [employer]. Thrive Questionnaire Date Thrive assessed: 07/03/24 I am a: Parent/Caregiver What is your living situation today?: I have a steady place to live Within the past 12 months, did the food you bought not last and you didn't have the money to get more?: I choose not to answer this question Within the past 12 months, did you worry whether your food would run out before you got money to buy more?: Sometimes True Do you have trouble paying for medicines?: No Do you have trouble getting transportation to medical appointments?: No Do you have trouble paying your heating and electricity bill?: No Do you have trouble taking care of your child, family member or friend?: I choose not to answer this question Do you have trouble with day-to-day activities such as bathing, preparing meals, shopping, managing finances, etc.?: No Are you currently unemployed and looking for a job?: No Are you interested in more education?: No Please select the resources that you would like help with: None Currently or been in a relationship where the following occur: I choose not to answer THRIVE Score: 1 AUDIT C Alcohol Use Questionnaire (AUDIT-C) 1. How often do you have a drink containing alcohol?: Never 3. How often do you have six or more drinks on one occasion?: Never Total Score: 0 LARISA-7 AMB Questionnaire LARISA-7 Date LARISA - 7 assessed: 07/03/24 Feeling nervous, anxious, or on edge: 0 = Not at all Not being able to stop or control worryin = Not at all Worrying too much about different things: 0 = Not at all Trouble relaxin = Not at all Being so restless that it is hard to sit still: 0 = Not at all Becoming easily annoyed or irritable: 0 = Not at all Feeling afraid as if something awful might happen: 0 = Not at all Total LARISA-7 score (0-4 normal; 5-9 mild; 10-14 moderate; 15-21 severe): 0 Source: Developed by Drs. Jasper Leiva, Gisell Townsend, Benjamin Villarreal and colleagues, with an educational luz from [employer]. Physical exam (Primary Care) Vital Signs: Last Vital Signs Pulse 80 07/03/24 14:13 BP 118/72 07/03/24 14:13 Pulse Ox 97 07/03/24 14:13 Oxygen Delivery Method Room Air 07/03/24 14:13 BMI result Body Mass Index 24.9 Tobacco/Smoking Status: Tobacco use Status Tobacco use date assessed 07/03/24 07/03/24 14:19 Patient Tobacco Use Status Current everyday Tobacco 07/03/24 14:12 Tobacco use type Cigarette 07/03/24 14:12 e-Cigarette/Vaping Use Never Used 07/03/24 14:12 PHQ-9: PHQ-9 Score PHQ-9: Total score 0 07/04/24 12:39 Depression Screening Interpretation: Negative Thrive Assessment: Date of Thrive Assessment Date Thrive assessed 07/03/24 07/03/24 14:19 Currently or been in a relationship where the following occur: I choose not to answer Results AMB Hemoglobin A1c AMB Hemoglobin A1c 11.0 % Last Edit by Lori Vasques CMA on 07/03/24 14:37 Results Reviewed Results Reviewed: Laboratory Last Values Hgb A1c (Clinic) 11.0 % (4.0-6.0) H 07/03/24 14:25 Coding Level of Care Code Est Pt Level 4 (51789) Complex EM visit Add On G2211 Diagnoses Type 2 diabetes mellitus with diabetic polyneuropathy, with long-term current use of insulin E11.42; Z79.4 Diabetes mellitus complication detail: with polyneuropathy Diabetes mellitus complication status: with neurologic complications Primary hypertension I10 Hypertension type: primary hypertension HIV infection, unspecified symptom status Z21 HIV symptom status: unspecified Vascular dementia F01.50 CKD stage 3b, GFR 30-44 ml/min N18.32 NSTEMI (non-ST elevated myocardial infarction) I21.4 Parkinson's disease without dyskinesia, unspecified whether manifestations fluctuate G20.A1 Fluctuating manifestations: unspecified whether manifestations fluctuate Liver lesion K76.9 Chronic low back pain with sciatica M54.40; G89.29 Additional Codes PHQ-9 - 29849 - PHQ-9 Billing: Yes ([id number]) Assessment & Plan Assessment & Plan (1) Type II diabetes with intermission coordinator use of insulin: Code(s): E11.9 - Type 2 diabetes mellitus without complications; Z79.4 - care home (current) use of insulin Category: Medical Qualifiers: Diabetes mellitus complication detail: with polyneuropathy Diabetes mellitus complication status: with neurologic complications Qualified Code(s): E11.42 - Type 2 diabetes mellitus with diabetic polyneuropathy; Z79.4 - care home (current) use of insulin Plan: Advised patient without glucometer or list of readings it is difficult to adjust her medication regimen. I will need to speak with the charge nurse at [facility]. Hemoglobin A1c is above goal. I increase Lantus from 44-50 units today. I referred her previously to endocrinology, but it is unclear if she had that appointment. Continue metformin to 1500 mg extended release daily. There is no diabetic option at [facility]. They prepare the same meals for everyone. Reviewed low carbohydrate, low sugar diet with the patient. (2) Hypertension: Code(s): I10 - Essential (primary) hypertension Category: Medical Qualifiers: Hypertension type: primary hypertension Qualified Code(s): I10 - Essential (primary) hypertension Plan: Controlled. Continue current regimen. (3) HIV (human immunodeficiency virus infection): Comment: diagnosed 2018, followed by [facility] ID Code(s): Z21 - Asymptomatic human immunodeficiency virus [HIV] infection status Category: Medical Qualifiers: HIV symptom status: unspecified Qualified Code(s): Z21 - Asymptomatic human immunodeficiency virus [HIV] infection status Plan: Patient is treated with Biktarvy. I will see if she was seen at [facility] since for referral was placed for this. (4) Vascular dementia: Code(s): F01.50 - Vascular dementia, unspecified severity, without behavioral disturbance, psychotic disturbance, mood disturbance, and anxiety Category: Medical Plan: The patient was referred to Neurology but it is unclear if she went to the appointment. I will see if we can request an appointment note. (5) CKD stage 3b, GFR 30-44 ml/min: Code(s): N18.32 - Chronic kidney disease, stage 3b Category: Medical Plan: Check renal function with labs. (6) NSTEMI (non-ST elevated myocardial infarction): Comment: 2019 Code(s): I21.4 - Non-ST elevation (NSTEMI) myocardial infarction Category: Medical Plan: Continue baby aspirin, Zetia, rosuvastatin. Check lipid profile. She was referred to Cardiology, but it is unclear if she went to the appointment. (7) Parkinson's disease without dyskinesia: Code(s): G20.A1 - Parkinson's disease without dyskinesia, without mention of fluctuations Category: Medical Qualifiers: Fluctuating manifestations: unspecified whether manifestations fluctuate Qualified Code(s): G20.A1 - Parkinson's disease without dyskinesia, without mention of fluctuations Plan: Unsteady gait and uses walker. At risk for falls. Ordered VNA for PT/OT evaluation. (8) Liver lesion: Code(s): K76.9 - Liver disease, unspecified Category: Medical Plan: MRI with and without contrast ordered for further evaluation. (9) Chronic low back pain with sciatica: Code(s): M54.40 - Lumbago with sciatica, unspecified side; G89.29 - Other chronic pain Category: Medical Plan: Sent lidocaine patch to pharmacy. They say she has a prescription for tramadol to take as needed though it is unclear who is prescribing this. X-ray requested. Plan I am going to contact the charge nurse at [facility] because I am concerned that the patient comes to these visits and is unable to provide appropriate information about her medications and blood sugars, and I will contact the specialist offices to see if she has been seen and request notes. We will also send ordert to [facility] for lab draw. Follow up in 1 month. Orders: Orders AMB Hemoglobin A1c 07/03/24 Z13.9 - Encounter for screening, unspecified Medications: New diaper,brief,adult,disposable As directed 38 ea 11RF lidocaine 5% leave on most painful area for up to 12 hrs 1 patch topical DAILY 30 ea 0RF Changed From insulin glargine (Lantus Solostar U-100 Insulin) 44 units subcut DAILY To insulin glargine (Lantus Solostar U-100 Insulin) 50 units (0.5 mL) subcut DAILY 15 mL 5RF
[2024-07-03 14:13] VITALS: BP 118/72; PULSE 80; O2SAT 97; BMI 24.9
== END 2024-07-03 15:02 | disposition home or self-care (01) ==
PROVIDERS: PCP Physician Assistant Medical; Visit Provider Physician Assistant Medical
DX: Z13.9 Encounter for screening, unspecified (principal)

== ENCOUNTER → 2024-07-03 14:06 | Outpatient (BNVA) | payer MEDICARE, MEDICAID, SELFPAY | PROVIDERS: PCP Physician Assistant Medical; Visit Provider Physician Assistant Medical | DX: E11.42 Type 2 diabetes mellitus with diabetic polyneuropathy (principal); Z21 Asymptomatic human immunodeficiency virus [HIV] infection status; E11.22 Type 2 diabetes mellitus with diabetic chronic kidney disease; I12.9 Hypertensive chronic kidney disease with stage 1 through stage 4 chronic kidney disease, or unspecified chronic kidney disease; N18.32 Chronic kidney disease, stage 3b; F01.50 Vascular dementia, unspecified severity, without behavioral disturbance, psychotic disturbance, mood disturbance, and anxiety; G20.A1 Parkinson's disease without dyskinesia, without mention of fluctuations; K76.9 Liver disease, unspecified; G89.29 Other chronic pain; M54.50 Low back pain, unspecified; I25.2 Old myocardial infarction; Z79.4 Long term (current) use of insulin; Z79.82 Long term (current) use of aspirin; Z79.899 Other long term (current) drug therapy | CPT/HCPCS: 83036; 96127; 99212 ==